=== PATIENT | male | born 1955 | race Two or more races ===

== ENCOUNTER 2017-10-08 14:35 | Outpatient (CLI) | payer BC | END 2017-10-08 16:06 | disposition home or self-care (01) | LOC: DCC 14:35 | DX: K61.1 Rectal abscess (principal) | CPT/HCPCS: G0463 ==

== ENCOUNTER 2017-10-18 13:24 | Outpatient (CLI) | payer BC | END 2017-10-18 15:30 | disposition home or self-care (01) | LOC: DCC 13:24 | DX: K61.1 Rectal abscess (principal) | CPT/HCPCS: G0463 ==